=== PATIENT | female | born 1975 | race African-American/Black ===

== ENCOUNTER → 2018-06-22 | Outpatient (CLI) | payer BC, OTHER ==
[~2018-06-22] MED LIST: ZESTRIL 5MG5 MG PO; ZOCOR5 MG PO
== END ==
LOC: MC.RAD 06-21 10:00
DX: Z12.31 Encounter for screening mammogram for malignant neoplasm of breast (principal)

== ENCOUNTER → 2019-08-09 | Outpatient (CLI) | payer OTHER | LOC: MC.RAD 09:30 | DX: Z12.31 Encounter for screening mammogram for malignant neoplasm of breast (principal) ==

== ENCOUNTER → 2021-01-15 | Outpatient (CLI) | payer OTHER | LOC: MC.RAD 14:45 | DX: Z12.31 Encounter for screening mammogram for malignant neoplasm of breast (principal) ==

== ENCOUNTER → 2022-02-11 | Outpatient (CLI) | payer OTHER | LOC: MC.RAD 02-03 13:30 | DX: Z12.31 Encounter for screening mammogram for malignant neoplasm of breast (principal) ==

== ENCOUNTER 2022-11-18 08:08 | Day surgery (SDC) | payer OTHER ==
[~2022-11-18] VITALS: Ht 162.6 cm; Wt 78.1 kg
[2022-11-18] MEDS ORDERED: ROBAXIN 50500 MG/TAB PO (08:56)
[2022-11-18] MEDS ORDERED: ZOCOR 80MG80 MG PO (08:56)
[2022-11-18] MEDS ORDERED: IBU800 M1 PO (08:57)
[2022-11-18] MEDS ORDERED: LINZESS290CAP PO (08:57)
[2022-11-18] MEDS ORDERED: PRINZIDE 25 MG-1 TAB PO (08:58)
[2022-11-18 09:03] VITALS: BP 119/83; PULSE 68; TEMP 97.9
[2022-11-18 10:05] VITALS: BP 109/70; PULSE 69; TEMP 97.9
--- NOTE | 2022-11-18 10:05 | NUR ---
1005 PATIENT RETURNS TO ROOM 9 VIA CART. PATIENT IS ALERT AND ORIENTED. PATIENT SPOUSE IS IN ROOM. PATIENT AMBULATES TO RECLINER WITH THE ASSISTANCE OF 2 NURSES. RESPIRATIONS EVEN AND UNLABORED. VITAL SIGNS OBTAINED. PATIENT REQUESTED WATER, NO DIFFICULTIES SWALLOWING. 1020 DOCTOR IN TO SPEAK WITH PATIENT. 1025 DISCHARGE INSTRUCTIONS REVIEWED WITH PATIENT AND PATIENT . BOTH VERBALIZED UNDERSTANDING. 1026 DISCONTINUED IV FROM RIGHT HAND WITH NO DIFFICULTIES. 1032 PATIENT DISCHARGES FROM UNIT VIA WHEELCHAIR IN STABLE CONDITION TO PERSONAL CAR.
[2022-11-18 10:20] VITALS: BP 127/72; PULSE 70
[2022-11-18 10:32] VITALS: BP 113/82; PULSE 60
== END 2022-11-18 10:32 | disposition home or self-care (01) ==
LOC: SDCO 08:08
DX: Z12.11 Encounter for screening for malignant neoplasm of colon (principal); G47.33 Obstructive sleep apnea (adult) (pediatric); K21.9 Gastro-esophageal reflux disease without esophagitis; Z86.010 Personal history of colon polyps
CPT/HCPCS: J2704; J7120

== ENCOUNTER → 2022-11-21 | Outpatient (CLI) | payer OTHER ==
[~2022-11-21] MED LIST changes: +IBU800 M1 PO; +LINZESS290CAP PO; +PRINZIDE 25 MG-1 TAB PO; +ROBAXIN 50500 MG/TAB PO; +ZOCOR 80MG80 MG PO
== END ==
LOC: MHCPAIN 08:44
DX: M47.817 Spondylosis without myelopathy or radiculopathy, lumbosacral region (principal); M53.3 Sacrococcygeal disorders, not elsewhere classified; M54.16 Radiculopathy, lumbar region; M51.36 Other intervertebral disc degeneration, lumbar region
CPT/HCPCS: G0463

== ENCOUNTER → 2022-12-08 | Outpatient (CLI) | payer OTHER | LOC: MHCPAIN 07:57 | DX: M47.816 Spondylosis without myelopathy or radiculopathy, lumbar region (principal); M54.16 Radiculopathy, lumbar region | CPT/HCPCS: J1100; Q9967 ==

== ENCOUNTER → 2024-05-28 | Outpatient (CLI) | payer OTHER | LOC: MC.RAD 09:25 | DX: Z12.31 Encounter for screening mammogram for malignant neoplasm of breast (principal) ==